=== PATIENT | female | born 1995 | race Caucasian/White ===

== ENCOUNTER 2018-11-30 15:37 | Emergency (ER) | payer MEDICAID ==
[~2018-11-30] VITALS: Ht 165.1 cm; Wt 59.0 kg
[2018-11-30 15:44] VITALS: Ht 165.1 cm; Wt 59.0 kg
--- NOTE | 2018-11-30 18:37 | ERD ---
ER Documentation Chief Complaint Chief Complaint pt is bib self with c/o vag bleeding since today, approx 10-12 wks preg HPI 23-year-old female presents with some vaginal spotting today. She has no pain or cramping. She is approximately 10-12 weeks by dates. She had a visit at [facility] but has yet to have her care intake. She is a G2 para 0. She denies fevers, vomiting, shortness breath, chest pain. She states that she may be O- blood type. ROS All systems reviewed and are negative except as per history of present illness. Allergies Allergies: Coded Allergies: No Known Allergy (Unverified , 11/30/18) PMhx/Soc Hx Alcohol Use: No Hx Substance Use: No Hx Tobacco Use: No Smoking Status: Never smoker Physical Exam Vitals Vital Signs Date Temp Pulse Resp B/P (MAP) Pulse Ox O2 O2 Flow FiO2 Time Delivery Rate 11/30/18 98.7 89 18 157/94 99 15:44 (115) Physical Exam Const: No acute distress Head: Atraumatic Eyes: Normal Conjunctiva ENT: Normal External Ears, Nose and Mouth. Neck: Full range of motion. No meningismus. Resp: Clear to auscultation bilaterally Cardio: Regular rate and rhythm, no murmurs Abd: Soft, non tender, non distended. Normal bowel sounds Skin: No petechiae or rashes Back: No midline or flank tenderness Ext: No cyanosis, or edema Neur: Awake and alert Psych: Normal Mood and Affect Result Diagram: 11/30/18 1641 Results 24 hrs Laboratory Tests Test 11/30/18 16:41 White Blood Count 11.9 10^3/ul Red Blood Count 4.05 10^6/ul Hemoglobin 12.3 g/dl Hematocrit 37.9 % Mean Corpuscular Volume 93.6 fl Mean Corpuscular Hemoglobin 30.4 pg Mean Corpuscular Hemoglobin Concent 32.5 g/dl Red Cell Distribution Width 12.9 % Platelet Count 277 10^3/UL Mean Platelet Volume 10.1 fl Immature Granulocytes % 0.400 % Neutrophils % 77.1 % Lymphocytes % 14.2 % Monocytes % 7.4 % Eosinophils % 0.6 % Basophils % 0.3 % Nucleated Red Blood Cells % 0.0 /100WBC Immature Granulocytes # 0.050 10^3/ul Neutrophils # 9.2 10^3/ul Lymphocytes # 1.7 10^3/ul Monocytes # 0.9 10^3/ul Eosinophils # 0.1 10^3/ul Basophils # 0.0 10^3/ul Nucleated Red Blood Cells # 0.0 10^3/ul Urine Color COLORLESS Urine Clarity CLEAR Urine pH 6.0 Urine Specific [place] 1.004 Urine Ketones NEGATIVE mg/dL Urine Nitrite NEGATIVE mg/dL Urine Bilirubin NEGATIVE mg/dL Urine Urobilinogen NEGATIVE mg/dL Urine Leukocyte Esterase NEGATIVE [place]/ul Urine Microscopic RBC 2 /HPF Urine Microscopic WBC 0 /HPF Urine Bacteria FEW /HPF Urine Hemoglobin 3+ mg/dL Urine Glucose NEGATIVE mg/dL Urine Total Protein NEGATIVE mg/dl Beta HCG, Quantitative 19097.0 mIU/ml Procedures/MDM Pelvic ultrasound shows normal-appearing 11-week intrauterine with heart tones. No appreciable acute abnormalities. Type is O+. Quantitative hCG is approximately 58,000. Urine shows blood without leukocytes, nitrites, additional abnormalities. Patient presents with vaginal spotting today. She has no active hemorrhaging or bleeding. She has no evidence of signs of ectopic . She will be discharged home with further observation at home and continue to follow-up with OB. She will should return for worsening bleeding, pain, fevers, new or worsening symptoms. No current evidence of ectopic, current complications of , signs of surgical abdomen. The patient was stable with no new complaints during the ER course. Clinically, there is no current evidence to suggest meningitis, sepsis, acute abdomen, pneumonia, stroke, acute coronary syndrome, pulmonary embolism, aortic dissection or any other emergent condition appearing to require further evaluati on or hospitalization. Patient counseled regarding my diagnostic impression and care plan. Prior to discharge all questions answered. Pt agrees with treatment plan and understands strict return precautions. Pt is instructed to follow up with primary care provider within 24-48 hours. Precautionary instructions provided including instructions to return to the ER if not improving or for any worsening or changing symptoms or concerns. Departure Diagnosis: Primary Impression: Vaginal bleeding in patient at less than 20 weeks ges... Condition: Stable Patient Instructions: Bleeding During Early Referrals: [facility] [place] [id number] [place] [address] OFFICE FAX BREN ACEVEDO [address] [place] [address] [address]. FRENCH CHRIS [address] [place] [address] [address] [facility] [address] [place] [address] [address] WILDER, [facility] [address] [facility] [place] [address] [facility] [address] [place] [address] [facility] [id number] - [address] PATEL, RICK [address] [place] [address] DR LESLIE, SHORTY [address] [facility]. [address], [place] [address] DR GROVER, [facility] [address] [place], [place] [address] Additional Instructions: Normal-appearing 11-week seen on ultrasound today. Blood type is O+ which does not require RhoGam injection. Recheck with OB or for new or worsening symptoms. MARLA CALVILLO MD Nov 30, 2018 18:37
[2018-11-30 19:05] VITALS: BP 137/64; PULSE 79; RESP 18
== END 2018-11-30 19:05 | disposition home or self-care (01) ==
LOC: FTE 15:37
DX: O20.9 Hemorrhage in early pregnancy, unspecified (principal); Z3A.11 11 weeks gestation of pregnancy
CPT/HCPCS: 36415; 76801; 81001; 84702; 85025; 86900; 86901